=== PATIENT | female | born 1950 | race Caucasian/White ===

== ENCOUNTER → 2022-05-02 10:16 | Outpatient (BNVA) | payer MEDICARE, SELFPAY | PROVIDERS: Visit Provider Student in an Organized Health Care Education/Training Program | DX: M65.862 Other synovitis and tenosynovitis, left lower leg (principal); T84.84XA Pain due to internal orthopedic prosthetic devices, implants and grafts, initial encounter; Z96.652 Presence of left artificial knee joint | CPT/HCPCS: 99205 ==

== ENCOUNTER → 2022-07-21 10:22 | Outpatient (BNVA) | payer MEDICARE, SELFPAY | PROVIDERS: Referring Provider Family Medicine; Visit Provider Student in an Organized Health Care Education/Training Program | DX: M25.862 Other specified joint disorders, left knee (principal); T84.84XA Pain due to internal orthopedic prosthetic devices, implants and grafts, initial encounter; Z96.652 Presence of left artificial knee joint | CPT/HCPCS: 99214 ==

== ENCOUNTER 2022-08-24 07:09 | Day surgery (SDC) | payer MEDICARE, SELFPAY ==
[2022-08-24 07:33] VITALS: BP 156/86; PULSE 85; RESP 16; TEMP 36.4; O2SAT 98
[2022-08-24] MEDS: Lactated Ringers 1,000 ML 80 ML IV (07:43)
[2022-08-24] MEDS: CLINDAMYCIN 900 MG/50 ML BAG 50 MG IVPB (07:46)
--- NOTE | 2022-08-24 08:13 | ANES.PREOP_ITS ---
General Info Date of Service Date Performed: 08/24/22 Height: 5 ft 1.5 in Weight: 65.1 kg Body Mass Index (BMI): 26.6 Surgical Procedure: Operation Date: 08/24/22 10:10 Proposed Procedure Side Surgeon p Knee Arthroscopy, Synovectomy Left Josef Delacruz MD Meds Allergies and Home Medications Allergies Allergy/AdvReac Type Severity Reaction Status Date / Time bee venom protein (honey bee) Allergy Unknown Verified 08/24/22 07:22 cephalexin Allergy Unknown Verified 08/24/22 07:22 percocet Allergy Unknown Other (See Uncoded 08/24/22 07:22 Comment) Home Medication Medication Instructions Recorded multivitamin 1 tab PO DAILY 03/21/22 naproxen sodium 220 mg capsule 220 mg PO BID PRN 03/21/22 acetaminophen 500 mg tablet 500 mg PO DIRECTED 08/23/22 diphenhydramine HCl 25 mg capsule 50 mg PO PRN PRN 08/24/22 (Benadryl) Current Visit Medications: Current Medications Generic Name Dose Route Start Last Admin Trade Name Freq PRN Reason Stop Dose Admin Ringer's Solution 1,000 mls @ 80 mls/hr 08/24/22 06:00 08/24/22 07:43 IV 09/22/22 23:59 80 mls/hr INFUSION JESUS Administration Clindamycin Phosphate/Dextrose 900 mg in 50 mls @ 50 mls/hr 08/24/22 06:00 08/24/22 07:46 Cleocin In D5w IVPB 08/24/22 18:00 50 mls/hr PREOP JESUS Administration IV Miscellaneous Supplies 1 each 08/24/22 06:00 Iv Access IV 09/22/22 23:59 DIRECTED JESUS Sodium Chloride 0 ml 08/24/22 06:00 Normal Saline Flush 10 Ml Syr IV 09/22/22 23:59 PRN PRN Sodium Chloride 0 ml 08/24/22 06:00 Normal Saline 10 Ml Vial IJ 09/22/22 23:59 DIRECTED PRN Sterile Water 0 ml 08/24/22 06:00 Water,Injection,Sterile 10 Ml Vial IJ 09/22/22 23:59 DIRECTED PRN PFSH Active Problems Active Problems: Problem Status Onset Code 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 states she does well with scopolamine patch. Surgical History Surgical History History of right hip replacement Hx of Achilles tendon repair Hx of arthroscopy of left knee 1971 Hx of dilation and curettage Hx of inguinal hernia repair Tobacco Smoking/Tobacco Use Status: Never Alcohol Alcohol Intake: never Substance Use Substance use: Never Substance use type: does not use Vital Signs and Lab Results Vital Signs Most Recent Vital Signs in EMR: Most Recent Vital Signs Temp Pulse Resp BP Pulse Ox 36.4 C L 85 16 156/86 H 98 08/24/22 07:33 08/24/22 07:33 08/24/22 07:33 08/24/22 07:33 08/24/22 07:33 Lab Results Blood Type / Crossmatch: No Data to Display Complete Blood Count: No Data to Display Complete Metabolic Panel: No Data to Display Liver Function Panel: No Data to Display Coagulation Panel: No Data to Display Cardiac Panel: No Data to Display Arterial Blood Gas: No Data to Display Venous Blood Gas: No Data to Display Pancreas Panel: No Data to Display Thyroid Panel: No Data to Display Infectious Disease: 2 No Data to Display Blood Cultures: No Data to Display Toxicology Panel: No Data to Display Anesthesia Assessment and Plan Anesthesia History Personal History: PONV Family History: No Family History of Anesthesia Complications Exercise Tolerance Exercise Tolerance: Metabolic Equivalents>4 Pertinent Negatives Pertinent Negatives: No Symptoms of GERD, No Major Cardiovascular Symptoms or Complaints, No Major Pulmonary Symptoms or Complaints and No History of CVA/TIA Cardiac & Pulmonary Exam Cardiac Exam: Normal S1/S2 Heart Sounds Pulmonary Exam: Clear Bilateral Breath Sounds Implantable Cardiac Device Does patient have a Pacemaker or an ICD?: No Airway Exam Known Difficult Airway: No Mallampati Class: 2 Mouth Opening: Normal (> 3cm) Thyromental Distance: Greater than 3 cm Neck Range of Motion: Full ROM Neck Circumference: Normal Teeth Condition: Normal Dentition ASA Classification ASA Score: ASA 2 Emergency Case?: No NPO Status NPO Status: NPO Clears >2 hours, Solids >8 hours Anesthesia Plan Resuscitation Status: Full Code Anesthesia Technique: Spinal Anesthesia Airway Planned: Natural Airway Monitors Used: Standard Monitors Preoperative Comments:: Patient reports significant PONV in the past. Would prefer to not be intubated, discussed that this is always our emergency backup plan. Spinal with no mind-alternating medication is preference, did discuss that if she changed her mind there were options available. Plan is chloroprocaine spinal with a dose of zofran, informed team patient would like to watch the procedure and additonal screen is in the room.
[2022-08-24 08:15] VITALS: BMI 26.6
[2022-08-24] MEDS: Normal Saline Flush 10 ML SYR IV (09:35)
--- NOTE | 2022-08-24 09:52 | W.PREOPHP ---
Assessment and Plan Assessment and plan (1) Patellar clunk syndrome of left knee: Status: Acute (2) Painful total knee replacement, left: Status: Acute Assessment and plan: Jazmin is a 72-year-old who has patellar clunk syndrome and pain about her left knee replacement. She has exhausted nonoperative options and is here today for arthroscopic synovectomy of the left knee. I previously reviewed the surgical details with her in the office and once again did that today. I discussed the risks to include bleeding, infection, pain, stiffness, continued symptoms, blood clot, need for repeat procedures. Despite these risk, she elects to proceed. History of Present Illness Narrative: Jazmin is a 72-year-old who has pain about her left knee replacement along with a clunk and a popping sensation suggestive of patellar clunk syndrome along with synovitis. She has had ongoing symptoms despite a host of nonoperative options. She is here today for arthroscopic synovectomy of the left knee. Please see the previous office note for complete detailed history. Review of Systems All systems reviewed & are unremarkable except as noted in HPI and below PFSH All Active Problems Patellar clunk syndrome of left knee (Acute) Painful total knee replacement, left (Acute) Surgical History History of right hip replacement Hx of Achilles tendon repair Hx of arthroscopy of left knee 1971 Hx of dilation and curettage Hx of inguinal hernia repair Social History Smoking/Tobacco Use Status: Never Smoking risk assessment performed?: Yes Alcohol Intake: never Drug use: Never Substance use type: does not use Do you feel safe at home: Yes Additional Social history: lives alone Meds Allergies and Home Medications Allergies Allergy/AdvReac Type Severity Reaction Status Date / Time bee venom protein (honey bee) Allergy Unknown Verified 08/24/22 07:22 cephalexin Allergy Unknown Verified 08/24/22 07:22 percocet Allergy Unknown Other (See Uncoded 08/24/22 07:22 Comment) Home Medications Medication Instructions Recorded Confirmed Type multivitamin 1 tab PO DAILY 03/21/22 08/24/22 History naproxen sodium 220 mg capsule 220 mg PO BID PRN 03/21/22 08/24/22 History acetaminophen 500 mg tablet 500 mg PO DIRECTED 08/23/22 08/24/22 History diphenhydramine HCl 25 mg capsule 50 mg PO PRN PRN 08/24/22 08/24/22 History (Benadryl) Exam Const General: cooperative, healthy appearing, comfortable and no acute distress Resp Auscultation: clear to auscultation bilaterally Cardio Rate: regular rate Rhythm: regular rhythm Results Last Vital Signs Temp 36.4 C L 08/24/22 07:33 Pulse 85 08/24/22 07:33 Resp 16 08/24/22 07:33 BP 156/86 H 08/24/22 07:33 Pulse Ox 98 08/24/22 07:33
--- NOTE | 2022-08-24 10:02 | W.PM.DSUDISC ---
Date of service: 08/24/22 Time of Service: 10:02 Discharge Plan Disposition Patient Disposition: Home Condition: Good Discharge Details Reason For Visit: L knee arthroscopy Attending Provider: Josef Delacruz Primary Care Provider: Ilda Head Home Meds and New Rx's Prescriptions: New acetaminophen 500 mg tablet 1,000 mg PO TID Qty: 90 0RF ibuprofen 600 mg tablet 600 mg PO TID PRN (Reason: pain) Qty: 90 0RF hydrocodone-acetaminophen 5-325 mg tablet 1 tab PO Q6H PRN (Reason: pain) Qty: 10 0RF Continued multivitamin Tablet 1 tab PO DAILY diphenhydramine HCl [Benadryl] 25 mg Capsule 50 mg PO PRN PRN Discontinued naproxen sodium 220 mg capsule 220 mg PO BID PRN acetaminophen 500 mg Tablet 500 mg PO DIRECTED Discharge Instructions Stand Alone Forms: [facility] Knee Arthroscopy Equipment/Supplies: Partial Weight Bearing Crutches Activity:: Activity as Tolerated Remove Dressings/Wound Care:: 72 hours Shower/Bathe:: 72 hours Diet:: As Tolerated Discharge Orders Discharge Orders: Discharge Order (Routine); Ordered 08/24/22 Ordered By: Tiago Rice DS: Diagnosis Discharge Diagnosis (1) Patellar clunk syndrome of left knee: Status: Acute (2) Painful total knee replacement, left: Status: Acute
[2022-08-24] MEDS: Bupivacaine 0.5% Pres-Free 30 ML VIAL (10:44)
[2022-08-24] MEDS: EPINEPHrine 30 MG/30 ML VIAL (10:45)
[2022-08-24 11:00] VITALS: BP 129/72; PULSE 85; RESP 16; TEMP 36.5; O2SAT 99
--- NOTE | 2022-08-24 11:29 | W.ANESPOSTOP ---
Postoperative Evaluation Date, Time and Location Date Performed: 08/24/22 Time Performed: 11:29 Patient Location: Day Surgery Unit (Seen earlier in [facility]) Vital Signs Most Recent Imported Vital Signs: Most Recent Vital Signs Temp Pulse Resp BP Pulse Ox 36.5 C 85 16 129/72 99 08/24/22 11:05 08/24/22 11:05 08/24/22 11:05 08/24/22 11:05 08/24/22 11:05 Pain Score Most Recent Pain Score: Most Recent Pain Score Pain Level 0 08/24/22 11:05 Assessment Mental Status: Awake (Alert & Oriented to Patient Baseline) Airway and Respiratory Function: Patent airway with normal (patient baseline) respiratory exam Cardiovascular Function: Hemodynamically Stable Hydration Status: Adequately Hydrated Nausea & Vomiting: No Nausea or Vomiting Pain: Pt. Denies Any Pain Peripheral Nerve Block: Regional nerve block not resolved at time of post operative discharge (Spinal wearing off appropriately but not completely gone at time of this documentation.)
--- NOTE | 2022-08-24 11:34 | W.PM.OP ---
Date of service: 08/24/22 Time of Service: 11:15 Operative Note Operative Note DATE OF PROCEDURE: 08/24/22 PRE-OP DIAGNOSIS: Arthrofibrosis and Patellar Clunk of Knee Replacement - LEFT POST-OP DIAGNOSIS: same PROCEDURE: Arthroscopic Synovectomy of 3 Compartments - Left Knee SURGEON: Josef Delacruz ANESTHESIA TYPE: Spinal Refer to Anesthesia Record ESTIMATED BLOOD LOSS: 0 PATHOLOGY: none sent COMPLICATIONS: None Patient was transported to: PACU Patient's condition: stable Indications: I have seen Jazmin in clinic for symptoms of stiffness, pain, and patellar clunk of the knee following knee replacement surgery. Nonoperative measures were exhausted but disability due to lack of motion persisted. I discussed knee arthroscopy with synovectomy with maniuplation with the patient. I reviewed the risks of the procedure to include, but not limited to, bleeding, infection, pain, continued stiffness, recurrence, blood clot. Despite these risks, the patient elected to proceed. Findings: There is notable scarring around the patella with large pedunculated sections. There is some dense scar tissue also seen attached and suprapatellar space and into the lateral gutter. These adhesions were released and excess scar tissue was resected. Procedure Description: Jazmin was greeted in the preoperative holding area where the correct side was identified and marked. The consent was reviewed with the patient and signed. The history and physical was updated. All questions were answered. She was taken back to the operating room. The patient was placed into the supine position on the operating room table. All bony prominences were well padded. Prophylactic antibiotics in the form of Clindamycin were administered. The left leg was then prepped with Chloraprep and draped in a standard fashion with stockinette and extremity drape. A timeout to confirm correct identity, side and site, procedure, allergies, anesthesia, and medical concerns was performed. The leg was placed into a pneumatic leg farris, [id number]. A standard lateral portal was made at the lateral border of the patella tendon in line with the inferior pole of the patella, soft spot. The skin and deep tissue was incised sharply and the blunt trochar was inserted atraumatically. At this point had good visualization of the patellofemoral joint and the superior compartment. There is notable scar tissue seen around the patella with some pedunculated sections circumferentially. A superolateral portal was then established with spinal needle localization just superior and lateral to the patella. A knife was taken down through the skin and soft tissue to enter the knee joint. The larger pedunculated scar tissue sections were resected with a shaver for better visualization. Then, starting in the superior compartment above the femoral component and anterior to the femur I released all scarring between the anterior femoral synovium and the overlying extensor mechanism. This was taken through all of any noticeable scar tissue until the superior patellar pouch was fully released and mobile. There is no obvious defect of the attachment of the quadriceps to the superior pole the patella. This resection was carried out mostly with electrocautery as well as shaver. Once this was released fully from lateral to medial superiorly I then continue working down the lateral gutter. All scar tissue in the lateral gutter was released so there is normal space and movement between the capsular tissues and the edge of the femoral component and femur. There was some frayed tissue and synovitis seen in this lateral gutter. This was taken down through the lateral gutter such that I was able to identify the polyethylene to its posterior corner. Once again, all scar tissue in this area was resected so the polyethylene was easily visible and there is no interposed tissue in the back or the polyethylene was identified. I then continue to work anteriorly. To continue the synovectomy from the lateral compartment to the anterior compartment into the medial compartment, I placed a medial portal under spinal needle localization. Once this was in place it became another working portal and I continued the synovectomy through the anterior compartment to the medial compartment. Once again, I freed up the medial gutter so I was able to visualize the polyethylene from the anterior posterior margins. There is no interposed tissue after full synovectomy was performed. Adhesions between the capsule and the femur were released. This was continued up the medial gutter until it met up with the releases performed previously in the superior compartment. Any remnant scar tissue from around the patella was then removed with a shaver and electrocautery. The arthroscope was brought back into the suprapatellar pouch and the leg was in full extension. The knee was thoroughly irrigated with the arthroscopic fluid on high flow and pressure. Inflow was stopped and excess fluid was removed. The wounds were closed with 4-0 Nylon. 0.5% bupivacaine was injected around the portal sites and into the knee. The wounds were dressed with Xeroform, 4x4 gauze, ABD pad, Kerlix and an FRANK wrap. A cryo-cuff was applied. The patient tolerated the procedure well and was returned to the Same Day Surgery area in a stable condition suffering no known complication..
[2022-08-24 11:40] VITALS: BP 146/77; PULSE 78; RESP 18; TEMP 36.1; O2SAT 99
[2022-08-24 12:39] VITALS: BP 150/86; PULSE 67; RESP 18; TEMP 36.6; O2SAT 99
== END 2022-08-24 13:00 | disposition home or self-care (01) ==
PROVIDERS: PCP Family Medicine; Visit Provider Student in an Organized Health Care Education/Training Program
PROC: (CPT 29870; principal; 2022-08-24 10:00)
DX: M65.862 Other synovitis and tenosynovitis, left lower leg (principal); M25.862 Other specified joint disorders, left knee; T84.84XA Pain due to internal orthopedic prosthetic devices, implants and grafts, initial encounter; Z96.652 Presence of left artificial knee joint
CPT/HCPCS: 29876; J0131; J1885; J2405

== ENCOUNTER → 2022-09-05 10:09 | Outpatient (BNVA) | payer MEDICARE, SELFPAY | PROVIDERS: PCP Family Medicine; Visit Provider Student in an Organized Health Care Education/Training Program | DX: Z47.1 Aftercare following joint replacement surgery (principal); Z96.652 Presence of left artificial knee joint; T84.84XA Pain due to internal orthopedic prosthetic devices, implants and grafts, initial encounter ==

== ENCOUNTER → 2022-10-03 10:32 | Outpatient (BNVA) | payer MEDICARE, SELFPAY | PROVIDERS: PCP Family Medicine; Referring Provider Family Medicine; Visit Provider Student in an Organized Health Care Education/Training Program | DX: Z47.1 Aftercare following joint replacement surgery (principal); Z96.652 Presence of left artificial knee joint; T84.84XA Pain due to internal orthopedic prosthetic devices, implants and grafts, initial encounter ==

== ENCOUNTER 2022-12-05 01:24 | Outpatient (CLI) | payer MEDICARE, SELFPAY ==
--- NOTE | 2022-12-05 07:30 | DI.MRI_ITS ---
Exam(s) MR LOWER JOINT LT WO EXAM: MR LOWER JOINT LT WO CLINICAL HISTORY: Pain, PATELLAR CLUNK SYNDROME LT KNEE, M25.862. TECHNIQUE: Multiplanar multisequence MRI was performed. MARS employed. COMPARISON: CR KNEE-LEFT-3 VIEW from 03/25/2021 MR MR KNEE WO CONTRAST LEFT from 06/08/2021 MR MR OUTSIDE IMAGES MSK from 06/08/2021 CR XR KNEE LEFT 1-2 VIEWS from 08/04/2021 FINDINGS: BONES: A total knee prosthesis is in place. There is significant artifact in the surrounding tissue. There is no fracture. There is again noted to be high signal in the marrow of the distal femur. T he marrow signal in the proximal tibia and fibula as well as patella appear normal. A cyst is again noted in the head of the fibula. JOINTS: Small to moderate size joint effusion is present. There is synovial thickening could indica te synovitis. No scar tissue is seen at the upper pole of the patella. TENDONS: Extensor mechanism: Unremarkable. Medial retinaculum: Unremarkable. Lateral retinaculum: Unremarkable. Popliteus: Not well seen. MUSCLES: Unremarkable. MENISCI: The medial meniscus is unremarkable. The lateral meniscus is unremarkable. SOFT TISSUES: Unremarkable. IMPRESSION: Total knee prosthesis creates artifact. There is a small to moderate-sized joint effusion. Persistent abnormal high signal in the marrow of the distal femur. No scar tissue visible at the upper pole of the patella. DATA REPOSITORY:
== END 2022-12-05 01:44 ==
LOC: DI 01:24
PROVIDERS: PCP Family Medicine; Visit Provider Student in an Organized Health Care Education/Training Program
DX: M25.862 Other specified joint disorders, left knee (principal); Z47.1 Aftercare following joint replacement surgery; M25.462 Effusion, left knee
CPT/HCPCS: 73721

== ENCOUNTER → 2022-12-19 08:05 | Outpatient (BNVA) | payer MEDICARE, SELFPAY | PROVIDERS: PCP Family Medicine; Referring Provider Family Medicine; Visit Provider Student in an Organized Health Care Education/Training Program | DX: T84.84XA Pain due to internal orthopedic prosthetic devices, implants and grafts, initial encounter (principal); Z96.652 Presence of left artificial knee joint; M25.862 Other specified joint disorders, left knee | CPT/HCPCS: 99213 ==

== ENCOUNTER → 2023-06-26 09:57 | Outpatient (BNVA) | payer MEDICARE, SELFPAY | PROVIDERS: PCP Family Medicine; Referring Provider Family Medicine; Visit Provider Student in an Organized Health Care Education/Training Program | DX: Z47.1 Aftercare following joint replacement surgery (principal); T84.84XD Pain due to internal orthopedic prosthetic devices, implants and grafts, subsequent encounter; Z96.652 Presence of left artificial knee joint; M25.862 Other specified joint disorders, left knee | CPT/HCPCS: 99213 ==

== ENCOUNTER → 2023-12-25 10:21 | Outpatient (BNVA) | payer MEDICARE, SELFPAY | PROVIDERS: PCP Family Medicine; Referring Provider Family Medicine; Visit Provider Student in an Organized Health Care Education/Training Program | DX: T84.84XA Pain due to internal orthopedic prosthetic devices, implants and grafts, initial encounter (principal); Z96.652 Presence of left artificial knee joint | CPT/HCPCS: 99213 ==